=== PATIENT | male | born 1950 | race Caucasian/White ===

== ENCOUNTER 2018-09-27 20:40 | Emergency (ER) | payer MEDICARE, OTHER ==
[2018-09-27] MEDS ORDERED: KETOROLAC TROMETHAMINE 60 MG/2 ML SDV IM ONE (21:25)
[2018-09-27] MEDS ORDERED: HYDROMORPHONE HCL INJ/PF 2 MG/ML AMPULE IM ONE (21:25)
--- NOTE | 2018-09-27 22:08 | RADIOLOGY REPORT (SQ) ---
2 VIEWS OF THE LEFT SHOULDER HISTORY: Postoperative pain. COMPARISON: None. FINDINGS: Bone mineralization is normal. No acute fracture is seen. Moderate degenerative changes of the acromioclavicular and glenohumeral joints. Small amount of air with soft tissue swelling surrounds the shoulder joint which may be postoperative. IMPRESSION: No acute fracture. Moderate degenerative changes.
[2018-09-27] MEDS ORDERED: ACETAMINOPHEN 325 MG TABLET PO ONE (22:31)
[2018-09-27] MEDS ORDERED: HYDROMORPHONE HCL INJ/PF 2 MG/ML AMPULE IV PRN (22:31)
--- NOTE | 2018-09-27 22:33 | ER Document Report ---
ED General - General Chief Complaint: Post Surgical Pain Stated Complaint: LEFT SHOULDER PAIN/POST OP Time Seen by Provider: 09/27/18 21:23 Notes: Patient is a 68-year old male who presents with severe left shoulder pain. The patient states that he had an arthroscopic of the left shoulder 2 days ago at [facility]. He states that his pain was well controlled until approximately 1800 this evening in which he gradually developed a progressively worsening throbbing, stabbing, severe pain to the left shoulder. He reports any attempt at moving the shoulder dramatically worsens the pain. He has been taking oxycodone at home that have been prescribed by the orthopedic surgeon without any relief of the pain. He states that he has not had pain similar to this since the operation. He did contact the orthopedic surgeon, was advised to increase his oxycodone dosing from 5 mg to 10 mg but that this did not provide any relief of his pain. Denies any fall or trauma to the shoulder. Denies any fever or constitutional symptoms. Denies any chest pain or shortness of breath. - Related Data Allergies/Adverse Reactions: tetracycline [Tetracycline] Allergy (Severe, Verified 09/27/18 20:43) rash Past Medical History - General Information source: Patient - Social History Smoking Status: Never Smoker Frequency of alcohol use: None Drug Abuse: None Lives with: Spouse/Significant other Family History: Reviewed & Not Pertinent Patient has suicidal ideation: No Patient has homicidal ideation: No - Past Medical History Cardiac Medical History: Reports: Hx Hypercholesterolemia Denies: Hx Coronary Artery Disease, Hx Heart Attack, Hx Hypertension Pulmonary Medical History: Reports: Hx Asthma, Hx Bronchitis Denies: Hx COPD, Hx Pneumonia, Hx Tuberculosis Neurological Medical History: Denies: Hx Cerebrovascular Accident, Hx Seizures Renal/ Medical History: Reports: Hx Benign Prostatic Hyperplasia. Denies: Hx Peritoneal Dialysis GI Medical History: Reports: Hx Gastroesophageal Reflux Disease, Hx Hiatal Hernia Musculoskeletal Medical History: Reports Hx Arthritis, Reports Hx Musculoskeletal Trauma Past Surgical History: Reports: Hx Abdominal Surgery - hernia surgery, Hx Orthopedic Surgery - shoulder replaced, Hx Thyroid Surgery, Hx Tonsillectomy, Hx Umbilical Hernia. Denies: Hx Pacemaker - Immunizations Immunizations up to date: No Hx Diphtheria, Pertussis, Tetanus Vaccination: No - 2003 Hx Pneumococcal Vaccination: 08/27/09 Review of Systems - Review of Systems Notes: Constitutional: Negative for fever. HENT: Negative for sore throat. Eyes: Negative for visual changes. Cardiovascular: Negative for chest pain. Respiratory: Negative for shortness of breath. Gastrointestinal: Negative for abdominal pain, vomiting or diarrhea. Genitourinary: Negative for dysuria. Musculoskeletal: Positive for right shoulder pain Skin: Negative for rash. Neurological: Negative for headaches, weakness or numbness. 10 point ROS negative except as marked above and in HPI. Physical Exam - Vital signs Vitals: Temp Pulse Resp BP Pulse Ox 98 F 72 20 152/107 H 95 09/27/18 20:43 09/27/18 20:43 09/27/18 20:43 09/27/18 20:43 09/27/18 20:43 Interpretation: Hypertensive Notes: PHYSICAL EXAMINATION: GENERAL: Appears uncomfortable and in pain HEAD: Atraumatic, normocephalic. EYES: Pupils equal round and reactive to light, extraocular movements intact, sclera anicteric, conjunctiva are normal. ENT: nares patent, oropharynx clear without exudates. Moderately dry mucous membranes. NECK: Normal range of motion, supple without lymphadenopathy LUNGS: Breath sounds clear to auscultation bilaterally and equal. No wheezes rales or rhonchi. HEART: Regular rate and rhythm without murmurs EXTREMITIES: Left arm immobilized in a sling. Range of motion testing deferred due to pain NEUROLOGICAL: RMU motor and sensory distribution intact bilaterally PSYCH: Normal mood, normal affect. SKIN: Warm, Dry, normal turgor, there is a small incisional scar over the left shoulder with a single stitch in place without any evidence of surrounding erythema or discharge Course - Re-evaluation Re-evalutation: 09/27/18 22:31 Patient presents with severe pain to the left shoulder after having an exploratory scope of the shoulder 2 days ago. Patient does appear to be in significant pain at the time my assessment is tight receiving hydromorphone and Toradol IM. X-rays without any acute fractures. He did not have any hardware placed, only had the shoulder scoped. He has been taking oxycodone at home without relief. Surgical incision itself is well in appearance, no evidence of erythema or discharge. No appreciable swelling or erythema to the shoulder. Will continue to work on getting the patient's pain under better control and then plan for discharge home. 09/27/18 23:42 Patient's pain is much improved at this point. Now resting comfortably. Comfortable with discharge home. At this time will discharge with return precautions and follow-up recommendations. Verbal discharge instructions given a the bedside and opportunity for questions given. Medication warnings reviewed. Patient is in agreement with this plan and has verbalized understanding of return precautions and the need for orthopedic follow-up within the next 24 hours due to his increased pain. - Vital Signs Vital signs: Temp Pulse Resp BP Pulse Ox 98.5 F 70 16 125/68 95 09/27/18 23:52 09/27/18 23:52 09/27/18 23:52 09/27/18 23:52 09/27/18 23:52 - Diagnostic Test Radiology reviewed: Image reviewed, Reports reviewed Radiology results interpreted by me: 09/27/18 22:32 Left shoulder x-ray: No acute fracture or dislocation Discharge - Discharge Clinical Impression: Postoperative pain Left shoulder pain Qualifiers: Chronicity: acute Qualified Code(s): M25.512 - Pain in left shoulder Condition: Good Disposition: HOME, SELF-CARE Additional Instructions: Take 1000 mg of Tylenol every 6 hours. Use the oxycodone that you have available 10 mg every 4 hours as needed for pain uncontrolled by Tylenol. Your x-rays otherwise unremarkable today. Please follow-up with orthopedic surgeon regarding your ongoing pain in the postoperative setting. Referrals: XENA ELIZABETH MD [COMMUNITY BASED STAFF] - Follow up as needed
[2018-09-27 23:59] VITALS: BP 125/68
== END 2018-09-27 23:58 | disposition home or self-care (01) ==
LOC: ER 20:40
DX: G89.18 Other acute postprocedural pain (principal); M25.512 Pain in left shoulder; E78.00 Pure hypercholesterolemia, unspecified
CPT/HCPCS: 99284; 73030; A9270; J1885; J1170

== ENCOUNTER 2018-10-02 18:09 | Inpatient (IN) | payer MEDICARE, OTHER ==
--- NOTE | 2018-10-02 18:36 | ER Document Report ---
ED Medical Screen (RME) - General Chief Complaint: Foot Pain Stated Complaint: FOOT PAIN/SHORT OF BREATH Time Seen by Provider: 10/02/18 18:30 Notes: 68 years old male presents today with left leg swelling particularly left ankle with redness as well as shortness of breath for the last 2 days. He had a recent travel to [place] where he rolled back and forth. Denies any precordial chest pain. Denies any nausea vomiting fever chills or other constitutional symptoms. Left lower extremity shows erythema around the ankle and foot and 4+ pitting edema. TRAVEL OUTSIDE OF THE [place] IN LAST 30 DAYS: No - Related Data Allergies/Adverse Reactions: tetracycline [Tetracycline] Allergy (Severe, Verified 10/02/18 18:10) rash Past Medical History - Social History Chew tobacco use (# tins/day): No Frequency of alcohol use: Occasional Drug Abuse: None - Past Medical History Cardiac Medical History: Reports: Hx Hypercholesterolemia Denies: Hx Coronary Artery Disease, Hx Heart Attack, Hx Hypertension Pulmonary Medical History: Reports: Hx Asthma, Hx Bronchitis Denies: Hx COPD, Hx Pneumonia, Hx Tuberculosis Neurological Medical History: Denies: Hx Cerebrovascular Accident, Hx Seizures Renal/ Medical History: Reports: Hx Benign Prostatic Hyperplasia. Denies: Hx Peritoneal Dialysis GI Medical History: Reports: Hx Gastroesophageal Reflux Disease, Hx Hiatal Hernia Musculoskeltal Medical History: Reports Hx Arthritis, Reports Hx Musculoskeletal Trauma Past Surgical History: Reports: Hx Abdominal Surgery - hernia surgery, Hx Orthopedic Surgery - shoulder replaced, Hx Thyroid Surgery, Hx Tonsillectomy, Hx Umbilical Hernia. Denies: Hx Pacemaker - Immunizations Immunizations up to date: No Hx Diphtheria, Pertussis, Tetanus Vaccination: No - 2003 Physical Exam - Vital signs Vitals: Temp Pulse Resp BP Pulse Ox 98.7 F 74 18 165/89 H 96 10/02/18 18:13 10/02/18 18:13 10/02/18 18:13 10/02/18 18:13 10/02/18 18:13 Course - Vital Signs Vital signs: Temp Pulse Resp BP Pulse Ox 98.7 F 74 18 165/89 H 96 10/02/18 18:13 10/02/18 18:13 10/02/18 18:13 10/02/18 18:13 10/02/18 18:13 Doctor's Discharge - Discharge Referrals: DEE MANDEL MD [Primary Care Provider] - Follow up as needed
[2018-10-02 19:06] LABS: ABSOLUTE BASOPHILS # (AUTO) 0.1 10^3/uL (0.0-0.2); ABSOLUTE EOSINOPHILS # (AUTO) 0.2 10^3/uL (0.0-0.6); ABSOLUTE LYMPHOCYTES (AUTO) 2.1 10^3/uL (0.5-4.7); ABSOLUTE MONOCYTES (AUTO) 0.6 10^3/uL (0.1-1.4); ABSOLUTE NEUT (AUTO) 6.7 10^3/uL (1.7-8.2); BASOPHILS % (AUTO) 0.8 % (0-2); EOSINOPHILS % (AUTO) 1.9 % (0-6); HEMATOCRIT 42.3 % (37.9-51.0); HEMOGLOBIN 14.7 g/dL (13.5-17.0); LYMPHOCYTES % (AUTO) 21.5 % (13-45); MEAN CORPUSCULAR HEMOGLOBIN 30.7 pg (27.0-33.4); MEAN CORPUSCULAR HGB CONC 34.7 g/dL (32.0-36.0); MEAN CORPUSCULAR VOLUME 88 fl (80-97); MONOCYTES % (AUTO) 6.1 % (3-13); PLATELET COUNT 249 10^3/uL (150-450); RED BLOOD COUNT 4.78 10^6/uL (4.35-5.55); SEGMENTED NEUTROPHILS % (AUTO) 69.7 % (42-78); TOTAL CELLS COUNTED % (AUTO) 100 %; WHITE BLOOD COUNT 9.5 10^3/uL (4.0-10.5)
[2018-10-02 19:26] LABS: ALANINE AMINOTRANSFERASE 22 U/L (21-72); ALBUMIN 4.4 g/dL (3.5-5.0); ALKALINE PHOSPHATASE 75 U/L (38-126); ANION GAP 13 (5-19); ASPARTATE AMINO TRANSFERASE 21 U/L (17-59); BILIRUBIN,DIRECT 0.3 mg/dL (0.0-0.4); BILIRUBIN,TOTAL 0.9 mg/dL (0.2-1.3); BLOOD UREA NITROGEN 15 mg/dL (7-20); CALCIUM 9.9 mg/dL (8.4-10.2); CARBON DIOXIDE 30 mmol/L (22-30); CHLORIDE 99 mmol/L (98-107); GLUCOSE 101 mg/dL (75-110); POTASSIUM 4.4 mmol/L (3.6-5.0); SODIUM 141.7 mmol/L (137-145); TOTAL PROTEIN 7.1 g/dL (6.3-8.2)
[2018-10-02 19:34] LABS: APPEARANCE,URINE CLEAR; BILIRUBIN,URINE NEGATIVE (NEGATIVE); COLOR,URINE YELLOW; GLUCOSE, URINE NEGATIVE (NEGATIVE); KETONES,URINE NEGATIVE (NEGATIVE); LEUKOCYTE ESTERASE,URINE NEGATIVE (NEGATIVE); NITRITE,URINE NEGATIVE (NEGATIVE); PROTEIN,URINE NEGATIVE (NEGATIVE); URINE SPECIFIC GRAVITY 1.017; UROBILINOGEN,URINE NEGATIVE mg/dL (<2.0)
--- NOTE | 2018-10-02 20:00 | ER Document Report ---
ED General - General Chief Complaint: Foot Pain Stated Complaint: FOOT PAIN/SHORT OF BREATH Time Seen by Provider: 10/02/18 18:30 Notes: Patient is a 68-year-old male with a past medical history of hypertension, recent left shoulder exploratory scope who presents with 24 hours of progressively worsening swelling of the left lower extremity as well as shortness of breath and pleuritic chest discomfort. Patient states that the symptoms started gradually and have gotten progressively worse over that period of time. Nothing improves or worsens his symptoms. He does describe the chest discomfort as a heaviness, mild discomfort. He describes the pain in his left leg as being a throbbing, aching, constant pain. He denies any history of similar symptoms in the past. He has not seen his general doctor regarding today's concerns. No hemoptysis, syncope, vomiting, or diaphoresis. He does not take any form of anticoagulation. TRAVEL OUTSIDE OF THE [place] IN LAST 30 DAYS: No - Related Data Allergies/Adverse Reactions: Sulfa (Sulfonamide Antibiotics) Allergy (Severe, Verified 10/03/18 01:33) Generalized rash tetracycline [Tetracycline] Allergy (Severe, Verified 10/02/18 18:10) rash Past Medical History - General Information source: Patient - Social History Smoking Status: Never Smoker Chew tobacco use (# tins/day): No Frequency of alcohol use: Occasional Drug Abuse: None Lives with: Spouse/Significant other Family History: Reviewed & Not Pertinent Patient has suicidal ideation: No Patient has homicidal ideation: No - Past Medical History Cardiac Medical History: Reports: Hx Hypercholesterolemia Denies: Hx Coronary Artery Disease, Hx Heart Attack, Hx Hypertension Pulmonary Medical History: Reports: Hx Asthma, Hx Bronchitis Denies: Hx COPD, Hx Pneumonia, Hx Tuberculosis Neurological Medical History: Denies: Hx Cerebrovascular Accident, Hx Seizures Renal/ Medical History: Reports: Hx Benign Prostatic Hyperplasia. Denies: Hx Peritoneal Dialysis GI Medical History: Reports: Hx Gastroesophageal Reflux Disease, Hx Hiatal Hernia Musculoskeletal Medical History: Reports Hx Arthritis, Reports Hx Musculoskeletal Trauma Past Surgical History: Reports: Hx Abdominal Surgery - hernia surgery, Hx Orthopedic Surgery - shoulder replaced, Hx Thyroid Surgery, Hx Tonsillectomy, Hx Umbilical Hernia. Denies: Hx Pacemaker - Immunizations Immunizations up to date: No Hx Diphtheria, Pertussis, Tetanus Vaccination: No - 2003 Hx Pneumococcal Vaccination: 08/27/09 Review of Systems - Review of Systems Notes: Constitutional: Negative for fever. HENT: Negative for sore throat. Eyes: Negative for visual changes. Cardiovascular: Positive for chest pain. Respiratory: Positive for shortness of breath. Gastrointestinal: Negative for abdominal pain, vomiting or diarrhea. Genitourinary: Negative for dysuria. Musculoskeletal: Positive for left leg pain Skin: Negative for rash. Neurological: Negative for headaches, weakness or numbness. 10 point ROS negative except as marked above and in HPI. Physical Exam - Vital signs Vitals: Temp Pulse Resp BP Pulse Ox 98.7 F 74 18 165/89 H 96 10/02/18 18:13 10/02/18 18:13 10/02/18 18:13 10/02/18 18:13 10/02/18 18:13 Interpretation: Normal Notes: PHYSICAL EXAMINATION: GENERAL: Well-appearing, well-nourished and in no acute distress. HEAD: Atraumatic, normocephalic. EYES: Pupils equal round and reactive to light, extraocular movements intact, sclera anicteric, conjunctiva are normal. ENT: nares patent, oropharynx clear without exudates. Moist mucous membranes. NECK: Normal range of motion, supple without lymphadenopathy LUNGS: Breath sounds clear to auscultation bilaterally and equal. No wheezes rales or rhonchi. HEART: Regular rate and rhythm without murmurs ABDOMEN: Soft, nontender, normoactive bowel sounds. No guarding, no rebound. No masses appreciated. EXTREMITIES: Normal range of motion, trace edema in the right lower extremity, 1 + pitting edema in the left lower extremity. NEUROLOGICAL: No focal neurological deficits. Moves all extremities spontaneously and on command. PSYCH: Normal mood, normal affect. SKIN: Warm, Dry, normal turgor, no rashes or lesions noted. Course - Re-evaluation Re-evalutation: 10/02/18 19:59 Patient presents with bilateral lower extremity swelling, worse on the left in the setting of a recent surgery and increased immobilization. Patient is also complaining of pleuritic chest discomfort and dyspnea worrisome for left lower cavity DVT with associated pulmonary embolus. D-dimer is noted to be elevated. Labs otherwise unremarkable. Patient will go for a left lower extremity venous Doppler as well as CT of the chest. 10/02/18 22:10 Patient has multiple pulmonary emboli on the right. Likely coming from a DVT in the left lower extremity. Patient remains hemodynamically within normal limits, well in appearance. Has been started on Lovenox. I discussed with Dr. Platt who has accepted for admission. - Vital Signs Vital signs: Temp Pulse Resp BP Pulse Ox 98.6 F 69 20 146/75 H 96 10/03/18 00:50 10/03/18 02:00 10/03/18 00:50 10/03/18 00:50 10/03/18 00:50 - Laboratory Result Diagrams: 10/02/18 18:56 10/02/18 18:56 Laboratory results interpreted by me: 10/02/18 18:56 D-Dimer 3.70 H - Diagnostic Test Radiology reviewed: Image reviewed, Reports reviewed - EKG Interpretation by Me Additional EKG results interpreted by me: 10/03/18 03:03 Sinus rhythm. Rate 68. No ST elevations or depressions. QTC is 426. Discharge - Discharge Clinical Impression: Shortness of breath, Left leg swelling Pulmonary embolus Qualifiers: Pulmonary embolism type: other Chronicity: acute Acute cor pulmonale presence: without acute cor pulmonale Qualified Code(s): I26.99 - Other pulmonary embolism without acute cor pulmonale Condition: Fair Disposition: ADMITTED OBSERVATION Admitting Provider: Hospitalist Unit Admitted: Telemetry
--- NOTE | 2018-10-02 21:48 | RADIOLOGY REPORT (SQ) ---
EXAM DESCRIPTION: CT CHEST ANGIOGRAPHY WITHOUT THEN WITH IV CONTRAST COMPLETED DATE/TME: 10/02/2018 18:35 CLINICAL HISTORY: 68 years, Male, Shortness of breath rule out PE COMPARISON: PROCEDURE: CLINICAL HISTORY: 68 years Male Shortness of breath rule out PE COMPARISON: None. TECHNIQUE: Contiguous axial images were obtained through the chest during the infusion of IV contrast. Reformatted images obtained. MIP reformatted images obtained. This exam was performed according to our department optimization program which includes automated exposure control, adjustment of the mA and/or kv according to patient size and/or use of iterative reconstruction technique. FINDINGS: There are intraluminal thrombi within branches of the pulmonary arteries supplying the majority of the right lung. No saddle embolus is seen. Thrombi are primarily in second and third order branches. There is consolidation and atelectasis at the left lung base.Right thyroid lobe is enlarged relative to the left but no definite focal lesion is seen. Sonography may be helpful if desired. Atelectasis involves each lung. There is no definite evidence of heart strain. . No pneumothorax is seen. Heart size is normal. No pleural effusions. No lymphadenopathy. No PE is seen in the left pulmonary artery branches. No evidence of aortic aneurysm. No other significant abnormality. IMPRESSION: Extensive right pulmonary emboli. I am contacting the ordering clinician now. TECHNIQUE: Images stored on PACS. All CT scanners at this facility use dose modulation, iterative reconstruction, and/or weight based dosing when appropriate to reduce radiation dose to as low as reasonably achievable (ALARA). [facility]: Dose Right [facility]: CareDose [facility]: Dose Right [facility]: Teradose 4D [facility]: [employer] LIMITATIONS: None. FINDINGS: IMPRESSION: TECHNICAL DOCUMENTATION: Quality ID # [id number]: Final reports with documentation of one or more dose reduction techniques (e.g., Automated exposure control, adjustment of the mA and/or kV according to patient size, use of iterative reconstruction technique) 2010 [employer]- All Rights Reserved
[2018-10-02] MEDS ORDERED: ENOXAPARIN SODIUM INJ 120 MG/0.8 ML DISP.SYRIN SUBCUT SCH (22:00)
[2018-10-02] MEDS ORDERED: IPRATROPIUM/ALBUTEROL 0.5-2.5 MG/3 ML AMPUL NEB PRN (23:22)
[2018-10-02] MEDS ORDERED: PROMETHAZINE HCL INJ 25 MG/1 ML VIAL IV PRN (23:22)
[2018-10-02] MEDS ORDERED: ACETAMINOPHEN 325 MG TABLET PO PRN (23:22)
[2018-10-02] MEDS ORDERED: TEMAZEPAM 7.5 MG CAPSULE PO PRN (23:22)
[2018-10-02] MEDS ORDERED: PROMETHAZINE HCL 25 MG TABLET PO PRN (23:22)
[2018-10-02] MEDS ORDERED: MAG HYDROX/AL HYDROX/SIMETH SUSP 30 ML UDCUP PO PRN (23:22)
[2018-10-03 00:57] LABS: APPEARANCE,URINE CLEAR; BILIRUBIN,URINE NEGATIVE (NEGATIVE); COLOR,URINE STRAW; GLUCOSE, URINE NEGATIVE (NEGATIVE); KETONES,URINE NEGATIVE (NEGATIVE); LEUKOCYTE ESTERASE,URINE NEGATIVE (NEGATIVE); NITRITE,URINE NEGATIVE (NEGATIVE); PROTEIN,URINE NEGATIVE (NEGATIVE); URINE SPECIFIC GRAVITY 1.039; UROBILINOGEN,URINE NEGATIVE mg/dL (<2.0)
--- NOTE | 2018-10-03 02:17 | PDOC H&P ---
History of Present Illness Admission Date/PCP: 10/02/18 23:22 DEE MANDEL MD Patient complains of: Left foot swelling History of Present Illness: PAULINE BROWN is a 68 year old male who comes to the emergency department with left foot pain and swelling. On September 26 patient had a left shoulder arthroscopic surgery and since then she has been laying on the couch, able to walk to the bathroom [id number] but for the last 2 days he is complaining of mild shortness of breath with a persistent dry cough for the last 3 days, phlegm, wheezing, pleuritic chest pain or chest pain, fever, chills, nausea, vomiting. Today he was at the [facility] who sent him to the emergency department as were concerns of DVT. Patient also went to [place] on September 17 by car and this is a [address] and came back on September 22 In the emergency department d-dimer noted to be elevated, left lower extremity ultrasound came back negative, CT a came back positive for intraluminal thrombi within branches of most of the right pulmonary arteries with no saddle emboli. Was a started on 1 mg/kg of Lovenox. Denies any history of blood clots. Past Medical History Past Medical History: Exposure to agent orange Cardiac Medical History: Reports: Hyperlipidema Pulmonary Medical History: Reports: Asthma, Bronchitis, Sleep Apnea - On CPAP EENT Medical History: Reports: Other - Moderate decreased hearing Neurological Medical History: Reports: Other - Restless leg syndrome Malignancy Medical History: Reports: Other GI Medical History: Reports: Gastroesophageal Reflux Disease, Hiatal Hernia Musculoskeltal Medical History: Reports: Arthritis Past Surgical History Past Surgical History: Reports: Herniorrhaphy, Orthopedic Surgery - shoulder replaced, Thyroidectomy, Tonsillectomy, Other - Half thyroidectomy Colonoscopy Social History Information Source: Patient, Relative Smoking Status: Never Smoker Frequency of Alcohol Use: Occasional Hx Recreational Drug Use: No Drugs: None Hx Prescription Drug Abuse: No - Advance Directive Resuscitation Status: Full Code Family History Family History: Reviewed & Not Pertinent Family History: Mother at 93 years old with history of osteoarthritis, father at 76 years old with history of prostate cancer, 2 uncles with history of SD Parental Family History Reviewed: Yes - As above Children Family History Reviewed: NA Sibling(s) Family History Reviewed.: NA Medication/Allergy Home Medications: Acetaminophen [Tylenol 325 mg Tablet] 325 mg PO Q6HP PRN 08/29/12 Acyclovir [Zovirax Susp 200 mg/5 ml 60 ml] 200 mg PO DAILY 07/16/12 Albuterol Sulfate [Ventolin HFA 60 puff/8 gm (ER Dispense)] 1 puff IH Q4H PRN Aspirin [Aspirin 81 mg Chewable Tablet] 81 mg PO DAILY 07/16/12 Esomeprazole Mag Trihydrate [Nexium] 40 mg PO DAILY 07/16/12 Fluticasone/Salmeterol [Advair 250-50 Diskus 14 Dose (Hosp Use)] 1 inh IH DAILY 07/16/12 Loratadine [Alavert] 10 mg PO DAILY 07/16/12 Multivitamin [Multivitamins] 1 each PO DAILY 07/16/12 Pravastatin Sodium [Pravachol] 20 mg PO DAILY 07/16/12 Tadalafil [Cialis] 2.5 mg PO DAILY 07/16/12 Alfuzosin HCl [Uroxatral SR 10 mg Tablet] 10 mg PO DAILY 07/22/12 Docusate Sodium [Colace 100 mg Capsule] 100 mg PO BID 07/22/12 Oxycodone HCl/Acetaminophen [Percocet 10-325 mg Tablet] 1 tab PO Q4HP PRN Oxycodone HCl/Acetaminophen [Percocet 5-325 mg Tablet] 1 cap PO Q4 PRN 07/26/12 Ondansetron [Zofran Odt 4 mg Tablet] 1 tab PO Q6H #15 tab.rapdis 02/21/13 Allergies/Adverse Reactions: Sulfa (Sulfonamide Antibiotics) Allergy (Severe, Verified 10/03/18 01:33) Generalized rash tetracycline [Tetracycline] Allergy (Severe, Verified 10/02/18 18:10) rash Review of Systems Review of Systems: As outlined in the HPI, others negative Physical Exam Vital Signs: Temp Pulse Resp BP Pulse Ox 98.6 F 72 20 146/75 H 96 10/03/18 00:50 10/03/18 00:50 10/03/18 00:50 10/03/18 00:50 10/03/18 00:50 Intake & Output 10/01/18 10/02/18 10/03/18 06:59 06:59 06:59 Weight 111.6 kg Additional comments: General appearance: Well-developed, well-nourished, alert and cooperative, and appears to be in no acute distress Head: Normocephalic Eyes: PEERL, EOMI, vision is grossly intact. Ears: External auditory canal and tympanic membranes clear, hearing grossly intact. Nose: No nasal discharge. Throat: Oral cavity and pharynx normal. No inflammation, swelling, exudate or lesions. Neck: Neck supple, nontender without lymphadenopathy, masses or thyromegaly. Cardiac: Normal S1 and S2. No S3, S4 or murmurs. Rhythm is regular. There is no peripheral edema, cyanosis or pallor. Extremities are warm and well perfused. Capillary refill is less than 2 seconds. No carotid bruits. Lungs: Clear to auscultation and percussion without rales, rhonchi, wheezing or diminished breath sounds. Not using accessory muscles. Abdomen: Positive bowel sounds. Soft. Nondistended, nontender. No guarding or rebound. No masses. No hepatosplenomegaly Extremities: No significant deformity or joint abnormality. No edema. Peripheral pulses intact. Left shoulder with ROM limitations secondary to recent surgery and pain Neurological: Cranial nerves II through XII grossly intact. Strength and sensation symmetric and intact throughout. Reflexes 2+ throughout. Skin: Skin normal color, texture and turgor with no lesions or eruptions, warm and dry. Psychiatric: The mental examination revealed the patient was oriented to person , place, and time. The patient was able to demonstrate good judgment on recent , without hallucinations, abnormal affect or abnormal behaviors. Results Laboratory Results: 10/02/18 23:50 Urine Color STRAW Urine Appearance CLEAR Urine pH 7.0 Ur Specific [place] 1.039 Urine Protein NEGATIVE Urine Glucose (UA) NEGATIVE Urine Ketones NEGATIVE Urine Blood NEGATIVE Urine Nitrite NEGATIVE Ur Leukocyte Esterase NEGATIVE Urine WBC (Auto) 0 10/02/18 10/02/18 10/02/18 18:55 18:56 18:56 WBC 9.5 RBC 4.78 Hgb 14.7 Hct 42.3 MCV 88 MCH 30.7 MCHC 34.7 RDW 14.0 Plt Count 249 Seg Neutrophils % 69.7 Lymphocytes % 21.5 Monocytes % 6.1 Eosinophils % 1.9 Basophils % 0.8 Absolute Neutrophils 6.7 Absolute Lymphocytes 2.1 Absolute Monocytes 0.6 Absolute Eosinophils 0.2 Absolute Basophils 0.1 D-Dimer Sodium 141.7 Potassium 4.4 Chloride 99 Carbon Dioxide 30 Anion Gap 13 BUN 15 Creatinine 1.15 Est GFR ( Amer) > 60 Est GFR (Non-Af Amer) > 60 Glucose 101 Calcium 9.9 Total Bilirubin 0.9 Direct Bilirubin 0.3 AST 21 ALT 22 Alkaline Phosphatase 75 Troponin I Total Protein 7.1 Albumin 4.4 Urine Color YELLOW Urine Appearance CLEAR Urine pH 7.0 Ur Specific [place] 1.017 Urine Protein NEGATIVE Urine Glucose (UA) NEGATIVE Urine Ketones NEGATIVE Urine Blood NEGATIVE Urine Nitrite NEGATIVE Urine Bilirubin NEGATIVE Urine Urobilinogen NEGATIVE Ur Leukocyte Esterase NEGATIVE Urine WBC (Auto) 0 Urine Mucus (Auto) RARE Urine Ascorbic Acid NEGATIVE 10/02/18 10/02/18 18:56 18:56 WBC RBC Hgb Hct MCV MCH MCHC RDW Plt Count Seg Neutrophils % Lymphocytes % Monocytes % Eosinophils % Basophils % Absolute Neutrophils Absolute Lymphocytes Absolute Monocytes Absolute Eosinophils Absolute Basophils D-Dimer 3.70 H Sodium Potassium Chloride Carbon Dioxide Anion Gap BUN Creatinine Est GFR ( Amer) Est GFR (Non-Af Amer) Glucose Calcium Total Bilirubin Direct Bilirubin AST ALT Alkaline Phosphatase Troponin I < 0.012 Total Protein Albumin Urine Color Urine Appearance Urine pH Ur Specific [place] Urine Protein Urine Glucose (UA) Urine Ketones Urine Blood Urine Nitrite Urine Bilirubin Urine Urobilinogen Ur Leukocyte Esterase Urine WBC (Auto) Urine Mucus (Auto) Urine Ascorbic Acid Impressions: Chest/Abdomen CTA 10/02/18 18:35 IMPRESSION: Extensive right pulmonary emboli. I am contacting the ordering clinician now. TECHNIQUE: Images stored on PACS. All CT scanners at this facility use dose modulation, iterative reconstruction, and/or weight based dosing when appropriate to reduce radiation dose to as low as reasonably achievable (ALARA). [facility]: Dose Right [facility]: CareDose [facility]: Dose Right [facility]: Teradose 4D [facility]: [employer] LIMITATIONS: None. FINDINGS: IMPRESSION: TECHNICAL DOCUMENTATION: Quality ID # [id number]: Final reports with documentation of one or more dose reduction techniques (e.g., Automated exposure control, adjustment of the mA and/or kV according to patient size, use of iterative reconstruction technique) 2010 [employer]- All Rights Reserved Assessment & Plan - Diagnosis (1) Pulmonary embolus Qualifiers: Pulmonary embolism type: other Chronicity: acute Acute cor pulmonale presence: without acute cor pulmonale Qualified Code(s): I26.99 - Other pulmonary embolism without acute cor pulmonale Is this a current diagnosis for this admission?: Yes Plan: Patient has risk factor as his recent prolonged car travel, recent surgery with post operative sedentarism. Will continue with Lovenox 1 mg/kg every 12 hours , first dose given in the emergency department, will also monitor for possible hemoptysis. Continue telemetry monitoring, oxygen protocol via nasal cannula as needed, he will be on CPAP overnight. Transition to p.o. anticoagulation according with his insurance coverage. Currently patient is very comfortable, not in nasal cannula, good oxygen saturation at 97% on room air. (2) Left leg swelling Is this a current diagnosis for this admission?: Yes Plan: Unclear etiology, bilateral lower extremity ultrasound negative for DVT, it can be secondary to his large pulmonary embolism with some cardiac strain producing lower extremities edema. Will recommend leg elevation. (3) Postoperative pain Is this a current diagnosis for this admission?: Yes Plan: Patient has had recent left shoulder arthroplasty, still with limitations upon movement, he tells me he needs to have rehabilitation but will start next Saturday. As needed pain medication. (4) Obstructive sleep apnea Is this a current diagnosis for this admission?: Yes Plan: Patient is on CPAP at home, will resume this, will call to let us know what is the setting (5) DVT prophylaxis Is this a current diagnosis for this admission?: Yes Plan: Full dose of Lovenox - Time Time Spent: 50 to 70 Minutes - Inpatient Certification Based on my medical assessment, after consideration of the patient's comorbidities, presenting symptoms, or acuity I expect that the services needed warrant INPATIENT care.: Yes I certify that my determination is in accordance with my understanding of Medicare's requirements for reasonable and necessary INPATIENT services [42 CFR 412.3e].: Yes Medical Necessity: Risk of Complication if Not Cared For in Hospital - Acute respiratory failure, hemoptysis
[2018-10-03] MEDS ORDERED: ALBUTEROL SULFATE HFA (90 MCG/PUFF) 8 GM MDI (1 MDI/ER DISP) IH PRN (03:34)
[2018-10-03] MEDS ORDERED: OXYCODONE-ACETAMINOPHEN 5-325 MG TABLET PO PRN (03:34)
[2018-10-03] MEDS: LANSOPRAZOLE 30 MG TAB.RAP.DR PO SCH (05:19)
[2018-10-03] MEDS: ONDANSETRON 4 MG TAB.RAPDIS PO SCH ×3 (05:22→18:08)
[2018-10-03 05:43] LABS: HEMATOCRIT 38.7 % (37.9-51.0); HEMOGLOBIN 13.7 g/dL (13.5-17.0); MEAN CORPUSCULAR HEMOGLOBIN 30.9 pg (27.0-33.4); MEAN CORPUSCULAR HGB CONC 35.5 g/dL (32.0-36.0); MEAN CORPUSCULAR VOLUME 87 fl (80-97); PLATELET COUNT 224 10^3/uL (150-450); RED BLOOD COUNT 4.45 10^6/uL (4.35-5.55); WHITE BLOOD COUNT 7.5 10^3/uL (4.0-10.5)
[2018-10-03 06:07] LABS: ANION GAP 14 (5-19); BLOOD UREA NITROGEN 12 mg/dL (7-20); CALCIUM 9.6 mg/dL (8.4-10.2); CARBON DIOXIDE 24 mmol/L (22-30); CHLORIDE 103 mmol/L (98-107); GLUCOSE 110 mg/dL (75-110); PHOSPHORUS 4.6 mg/dL (2.5-4.5); POTASSIUM 4.2 mmol/L (3.6-5.0); SODIUM 140.7 mmol/L (137-145)
[2018-10-03 07:00] LABS: ARTERIAL BLOOD BASE EXCESS 2.6 mmol/L; ARTERIAL BLOOD H2CO3 1.16 mmol/L (1.05-1.35); ARTERIAL BLOOD HCO3 26.5 mmol/L (20-24); ARTERIAL BLOOD O2 SATURATION 95.8 % (94-98); ARTERIAL BLOOD PCO2 38.5 mmHg (35-45); ARTERIAL BLOOD PH 7.46 (7.35-7.45); ARTERIAL BLOOD PO2 75.4 mmHg (80-100); ARTERIAL BLOOD TOTAL CO2 27.6 mmol/L (23-27)
[2018-10-03 07:01] LABS: ARTERIAL BLOOD FIO2 ROOM AIR
[2018-10-03] MEDS ORDERED: ALBUTEROL SULFATE HFA (90 MCG/PUFF) 200 PUFF/8.5 GM MDI IH PRN (07:07)
--- NOTE | 2018-10-03 08:36 | RADIOLOGY REPORT (SQ) ---
EXAM DESCRIPTION: VENOUS UNILATERAL LOWER COMPLETED DATE/TIME: 10/02/2018 10:24 pm REASON FOR STUDY: left leg swelling COMPARISON: CT angio chest 10/02/2018 TECHNIQUE: Dynamic and static mehta scale and color images acquired of the left leg venous system. Se lected spectral images acquired with additional compression and augmentation maneuvers. The contralat eral common femoral vein and saphenofemoral junction were also imaged. Images stored on PACS. LIMITATIONS: None. FINDINGS: LEFT COMMON FEMORAL: Normal phasicity, compression and augmentation. No visualized echogenic material on g ray scale. No defects on color images. FEMORAL: Normal compression and augmentation. No visualized echogenic material on mehta scale. No defe cts on color images. POPLITEAL: Normal compression, augmentation. No visualized echogenic material on mehta scale. No defec ts on color images. CALF VESSELS: Normal compression, augmentation. No visualized echogenic material on mehta scale. No de fects on color images. GSV and SSV: Normal compression, augmentation. No visualized echogenic material on mehta scale. No def ects on color images. ANY DEEP VENOUS INSUFFICIENCY: Not evaluated. ANY EVIDENCE OF POPLITEAL CYST: No. OTHER: No other significant finding. RIGHT COMMON FEMORAL VEIN AND SAPHENOFEMORAL JUNCTION: Normal phasicity, compression and augmentation. No visualized echogenic material on mehta scale. No de fects on color images. IMPRESSION: NO EVIDENCE OF DVT OR SVT IN THE LEFT LEG. TECHNICAL DOCUMENTATION: JOB ID: [id number] [email or web address]- All Rights Reserved Reading location - IP/workstation name: [facility]
[2018-10-03] MEDS: FLUTICASONE/SALMETEROL DISKUS 250-50 MCG/DOSE IH SCH (09:48)
[2018-10-03] MEDS: LORATADINE 10 MG TABLET PO SCH (09:49)
[2018-10-03] MEDS: DOCUSATE SODIUM 100 MG CAPSULE PO SCH ×2 (09:49→18:33)
[2018-10-03] MEDS: ACYCLOVIR 200 MG/5 ML SUSP 60 ML PO SCH (09:49)
[2018-10-03] MEDS: TAMSULOSIN HCL 0.4 MG CAP.SR.24H PO SCH (09:49)
[2018-10-03] MEDS: ASPIRIN 81 MG TABLET, CHEWABLE PO SCH (09:49)
[2018-10-03] MEDS: MULTIVITAMIN TABLET PO SCH (09:49)
[2018-10-03] MEDS ORDERED: ENOXAPARIN SODIUM INJ 120 MG/0.8 ML DISP.SYRIN SUBCUT SCH (10:00)
--- NOTE | 2018-10-03 10:47 | EKG REPORT ---
SEVERITY:- BORDERLINE ECG - SINUS RHYTHM ATRIAL PREMATURE COMPLEX BORDERLINE T WAVE ABNORMALITIES : Confirmed by: Ulisses Peña 03-Oct-2018 10:46:37
--- NOTE | 2018-10-03 16:10 | PDOC PROGRESS REPORT ---
Subjective Progress Note for:: 10/03/18 Subjective:: Patient is comfortable in bed. He says he is improving and not requiring any oxygen. His left foot plantar aspect is painful and tender and I wonder he may have plantar fasciitis. Swelling of the left lower extremity improved. Reason For Visit: PULMONARY EMBOLISM Physical Exam Vital Signs: Temp Pulse Resp BP Pulse Ox 98.2 F 82 17 128/68 H 97 10/03/18 11:33 10/03/18 14:00 10/03/18 11:33 10/03/18 11:33 10/03/18 11:33 Intake & Output 10/02/18 10/03/18 10/04/18 06:59 06:59 06:59 Intake Total 100 Output Total 350 300 Balance -350 -200 Weight 246 lb 0.574 oz General appearance: PRESENT: no acute distress, cooperative Head exam: PRESENT: atraumatic, normocephalic Eye exam: PRESENT: EOMI, PERRLA Mouth exam: PRESENT: moist, neck supple, tongue midline Neck exam: ABSENT: meningismus, tenderness, tracheostomy Respiratory exam: PRESENT: clear to auscultation ezekiel. ABSENT: accessory muscle use Cardiovascular exam: PRESENT: RRR. ABSENT: diastolic murmur, systolic murmur Pulses: PRESENT: normal radial pulses GI/Abdominal exam: PRESENT: normal bowel sounds, soft. ABSENT: ascites, mass, tenderness Rectal exam: PRESENT: deferred Extremities exam: ABSENT: pedal edema Musculoskeletal exam: PRESENT: normal inspection. ABSENT: deformity Neurological exam: PRESENT: alert, altered, awake, oriented to person, oriented to place, oriented to time, oriented to situation Psychiatric exam: PRESENT: appropriate affect. ABSENT: agitated, anxious, homicidal ideation, suicidal ideation Results Laboratory Results: 10/03/18 05:30 10/03/18 05:30 10/02/18 10/03/18 10/03/18 23:50 05:30 05:30 WBC 7.5 RBC 4.45 Hgb 13.7 Hct 38.7 MCV 87 MCH 30.9 MCHC 35.5 RDW 14.0 Plt Count 224 Carbonic Acid HCO3/H2CO3 Ratio ABG pH ABG pCO2 ABG pO2 ABG HCO3 ABG O2 Saturation ABG Base Excess FiO2 Sodium 140.7 Potassium 4.2 Chloride 103 Carbon Dioxide 24 Anion Gap 14 BUN 12 Creatinine 0.98 Est GFR ( Amer) > 60 Est GFR (Non-Af Amer) > 60 Glucose 110 Calcium 9.6 Phosphorus 4.6 H Magnesium 2.1 Urine Color STRAW Urine Appearance CLEAR Urine pH 7.0 Ur Specific [place] 1.039 Urine Protein NEGATIVE Urine Glucose (UA) NEGATIVE Urine Ketones NEGATIVE Urine Blood NEGATIVE Urine Nitrite NEGATIVE Ur Leukocyte Esterase NEGATIVE Urine WBC (Auto) 0 10/03/18 06:35 WBC RBC Hgb Hct MCV MCH MCHC RDW Plt Count Carbonic Acid 1.16 HCO3/H2CO3 Ratio 22:1 ABG pH 7.46 H ABG pCO2 38.5 ABG pO2 75.4 L ABG HCO3 26.5 H ABG O2 Saturation 95.8 ABG Base Excess 2.6 FiO2 ROOM AIR Sodium Potassium Chloride Carbon Dioxide Anion Gap BUN Creatinine Est GFR ( Amer) Est GFR (Non-Af Amer) Glucose Calcium Phosphorus Magnesium Urine Color Urine Appearance Urine pH Ur Specific [place] Urine Protein Urine Glucose (UA) Urine Ketones Urine Blood Urine Nitrite Ur Leukocyte Esterase Urine WBC (Auto) Impressions: Chest/Abdomen CTA 10/02/18 18:35 IMPRESSION: Extensive right pulmonary emboli. I am contacting the ordering clinician now. TECHNIQUE: Images stored on PACS. All CT scanners at this facility use dose modulation, iterative reconstruction, and/or weight based dosing when appropriate to reduce radiation dose to as low as reasonably achievable (ALARA). [facility]: Dose Right [facility]: CareDose [facility]: Dose Right [facility]: Teradose 4D [facility]: [employer] LIMITATIONS: None. FINDINGS: IMPRESSION: TECHNICAL DOCUMENTATION: Quality ID # [id number]: Final reports with documentation of one or more dose reduction techniques (e.g., Automated exposure control, adjustment of the mA and/or kV according to patient size, use of iterative reconstruction technique) 2010 [employer]- All Rights Reserved Venous Doppler Study 10/02/18 19:05 IMPRESSION: NO EVIDENCE OF DVT OR SVT IN THE LEFT LEG. Assessment & Plan - Diagnosis (1) Pulmonary embolus Qualifiers: Pulmonary embolism type: other Chronicity: acute Acute cor pulmonale presence: without acute cor pulmonale Qualified Code(s): I26.99 - Other pulmonary embolism without acute cor pulmonale Is this a current diagnosis for this admission?: Yes Plan: Patient is status post left shoulder surgery and had a recent trip in a car for several hours He is stable and we will switch Lovenox to Eliquis today Echocardiogram is pending He will need anticoagulation for 3-6 months Discussed with the patient and his family at the bedside (2) Left leg swelling Is this a current diagnosis for this admission?: Yes Plan: Resolved (3) Obstructive sleep apnea Is this a current diagnosis for this admission?: Yes Plan: Continue CPAP
[2018-10-03] MEDS: APIXABAN 5 MG TABLET PO SCH (18:33)
--- NOTE | 2018-10-03 19:20 | XCELERA REPORT ---
[address] [address] Transthoracic Echocardiogram Report Name: PAULINE BROWN Age: 68 yrs Gender: Male : 1950 Patient Status: Inpatient Patient Location: [address] [place] [address] Study Date: 10/03/2018 10:45 AM Height: 70 in Weight: 254 lb BSA: 2.3 m2 Procedure: A complete two-dimensional transthoracic echocardiogram was performed (2D, M-mode, spectral and color flow Doppler). The study was technically difficult with many images being suboptimal in quality. Reason For Study: Pulmonary embolism Ordering Physician: MARIAN BURRIS Performed By: Abhilash Basurto Interpretation Summary The left ventricular ejection fraction is normal. There is borderline concentric left ventricular hypertrophy. The left ventricle is grossly normal size. Doppler measurements suggest pseudonormalized left ventricular relaxation, which is associated with grade II/IV or mild to moderate diastolic dysfunction Regional wall motion abnormalities cannot be excluded due to limited visualization. The right ventricle is grossly normal size. There is normal right ventricular wall thickness. There is no mitral valve stenosis. There is a trace amount of mitral regurgitation No aortic regurgitation is present. There is no aortic valve stenosis There is a trace or physiologic amount of tricuspid regurgitation Tricuspid regurgitation jet envelope not well defined to measure RV systolic pressure accurately. The aortic root is not well visualized but is probably normal size. The inferior vena cava appeared normal and decreased > 50% with respiration (RAP 5-10 mmHg) Minimal pericardial effusion. MMode/2D Measurements & Calculations RVDd: 3.1 cm LVIDd: 4.3 cm FS: 33.4 % Ao root diam: 3.4 cm IVSd: 1.3 cm LVIDs: 2.9 cm EDV(Teich): 83.4 ml Ao root area: 9.0 cm2 LVPWd: 1.3 cm ESV(Teich): 31.4 ml LA dimension: 3.0 cm EF(Teich): 62.3 % Doppler Measurements & Calculations MV E max abraham: MV P1/2t max abraham: Ao V2 max: LV V1 max P.1 cm/sec 71.6 cm/sec 110.2 cm/sec 3.9 mmHg MV A max abraham: MV P1/2t: 88.1 msec Ao max PG: LV V1 max: 69.1 cm/sec MVA(P1/2t): 2.5 cm2 4.9 mmHg 99.1 cm/sec MV E/A: 0.88 MV dec slope: 238.1 cm/sec2 MV dec time: 0.27 sec PA V2 max: MV P1/2t-pr_phl: 82.9 cm/sec 88.1 msec PA max P.8 mmHg Left Ventricle The left ventricle is grossly normal size. There is borderline concentric left ventricular hypertrophy. The left ventricular ejection fraction is normal. Doppler measurements suggest pseudonormalized left ventricular relaxation, which is associated with grade II/IV or mild to moderate diastolic dysfunction. Regional wall motion abnormalities cannot be excluded due to limited visualization. Right Ventricle The right ventricle is grossly normal size. There is normal right ventricular wall thickness. The right ventricular systolic function is normal. Atria The right atrium is normal in size. Borderline left atrial enlargement. Interarterial septum not well visualized and not well dopplered. Cannot comment on ASD/PFO presence. Mitral Valve The mitral valve leaflets are sclerotic, but show no functional abnormalities. There is no mitral valve stenosis. There is a trace amount of mitral regurgitation. Aortic Valve The aortic valve is grossly normal. There is no aortic valve stenosis. No aortic regurgitation is present. Tricuspid Valve The tricuspid valve is not well visualized, but is grossly normal. There is no tricuspid stenosis. There is a trace or physiologic amount of tricuspid regurgitation. Tricuspid regurgitation jet envelope not well defined to measure RV systolic pressure accurately. Pulmonic Valve The pulmonic valve is not well visualized. Great Vessels The aortic root is not well visualized but is probably normal size. The inferior vena cava appeared normal and decreased > 50% with respiration (RAP 5-10 mmHg). Effusions Minimal pericardial effusion. : MARIAN BURRIS > Ulisses Peña
[2018-10-03] MEDS: FLUTICASONE NASAL SPRAY 50 MCG/SPRY 120 SPRAY/16 GM NASL SCH (19:27)
[2018-10-03] MEDS ORDERED: ATORVASTATIN CALCIUM 10 MG TABLET PO SCH (22:00)
[2018-10-04] MEDS: ONDANSETRON 4 MG TAB.RAPDIS PO SCH (05:06)
[2018-10-04] MEDS: LANSOPRAZOLE 30 MG TAB.RAP.DR PO SCH (05:07)
[2018-10-04 05:39] LABS: APPEARANCE,URINE CLEAR; BILIRUBIN,URINE NEGATIVE (NEGATIVE); COLOR,URINE YELLOW; GLUCOSE, URINE NEGATIVE (NEGATIVE); KETONES,URINE NEGATIVE (NEGATIVE); LEUKOCYTE ESTERASE,URINE NEGATIVE (NEGATIVE); NITRITE,URINE NEGATIVE (NEGATIVE); PROTEIN,URINE NEGATIVE (NEGATIVE); URINE SPECIFIC GRAVITY 1.023
--- NOTE | 2018-10-04 10:03 | PDOC DISCHARGE SUMMARY ---
General - Admit/Disc Date/PCP Admission Date/Primary Care Provider: 10/02/18 23:22 DEE MANDEL MD Discharge Date: 10/04/18 - Discharge Diagnosis (1) Pulmonary embolus Is this a current diagnosis for this admission?: Yes (2) Left leg swelling Is this a current diagnosis for this admission?: Yes (3) Obstructive sleep apnea Is this a current diagnosis for this admission?: Yes - Additional Information Resuscitation Status: Full Code Discharge Diet: As Tolerated Discharge Activity: Activity As Tolerated Prescriptions: Apixaban [Eliquis 5 mg Tablet] 5 mg PO BID 30 Days tablet Apixaban [Eliquis 5 mg Tablet] 10 mg PO BID 7 Days tablet Home Medications: Fluticasone/Salmeterol [Advair 250-50 Diskus 14 Dose/Diskus] 1 inh IH Q12 Acyclovir [Acyclovir 400 mg Tablet] 400 mg PO Q12 10/03/18 Albuterol Sulfate [Proair HFA Inhalation Aerosol 8.5 gm MDI] 1 puff IH Q4HP PRN 10/03/18 Aspirin [Ecotrin 81 mg EC Tablet] 81 mg PO DAILY 10/03/18 Atorvastatin Calcium [Lipitor 80 mg Tablet] 80 mg PO QHS 10/03/18 Calcium Carbonate [Os-Duane 500 mg Tablet (Oyster-Shell)] 500 mg PO DAILY Cholecalciferol (Vitamin D3) [Vitamin D3 1000 Unit Tablet] 1,000 unit PO DAILY 10/03/18 Finasteride [Proscar 5 mg Tablet] 5 mg PO QHS 10/03/18 Gabapentin [Neurontin 300 mg Capsule] 300 mg PO HSP PRN 10/03/18 Loratadine [Claritin 10 mg Tablet] 10 mg PO DAILY 10/03/18 Multivitamin [Tab-A-Peggy (Multiple Vitamin) Tablet] 1 tab PO DAILY 10/03/18 Oxycodone HCl [Oxy-Ir 5 mg Tablet] 5 mg PO Q6HP PRN MDD filled 10/01 for 4 day supply 10/03/18 Pantoprazole Sodium [Protonix] 40 mg PO DAILY 10/03/18 Tadalafil [Cialis] 2.5 mg PO TUFR@1000 PRN 10/03/18 Tamsulosin HCl [Flomax 0.4 mg Cap.sr] 0.4 mg PO QHS 10/03/18 Apixaban [Eliquis 5 mg Tablet] 5 mg PO BID 30 Days tablet 10/04/18 Apixaban [Eliquis 5 mg Tablet] 10 mg PO BID 7 Days tablet 10/04/18 History of Present Illness History of Present Illness: PAULINE BROWN is a 68 year old male who comes to the emergency department with left foot pain and swelling. On September 26 patient had a left shoulder arthroscopic surgery and since then she has been laying on the couch, able to walk to the bathroom [id number] but for the last 2 days he is complaining of mild shortness of breath with a persistent dry cough for the last 3 days, phlegm, wheezing, pleuritic chest pain or chest pain, fever, chills, nausea, vomiting. [facility] to the emergency department as were concerns of DVT. Patient also went to [place] on September 17 by car and this is a [address] and came back on September 22 In the emergency department d-dimer noted to be elevated, left lower extremity ultrasound came back negative, CT a came back positive for intraluminal thrombi within branches of most of the right pulmonary arteries with no saddle emboli. Was a started on 1 mg/kg of Lovenox. Denies any history of blood clots. Hospital Course Hospital Course: Patient was initially started on subcu therapeutic dose Lovenox. His DVT study was negative. Echocardiogram was unremarkable except for mass in the right atrium. I discussed with Dr. 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 He just recommends observation and no further intervention. I discussed with the patient and his and recommended to follow-up with Dr. Peña outpatient. Patient was switched to Eliquis. He will take 10 mg twice daily for 7 days then 5 mg twice daily. Discussed with him and his in the in agreement of the plan. Recommend anticoagulation for 3-6 months. Patient is stable on room air and asymptomatic and wants to go home. Physical Exam Vital Signs: Temp Pulse Resp BP Pulse Ox 98.9 F 65 16 125/76 97 10/04/18 08:00 10/04/18 08:00 10/04/18 08:00 10/04/18 08:00 10/04/18 08:00 Intake & Output 10/03/18 10/04/18 10/05/18 06:59 06:59 06:59 Intake Total 600 Output Total 350 424 Balance -350 176 Weight 246 lb 0.574 oz 241 lb 2.971 oz General appearance: PRESENT: no acute distress, cooperative Head exam: PRESENT: atraumatic, normocephalic Eye exam: PRESENT: EOMI, PERRLA Mouth exam: PRESENT: neck supple, tongue midline Neck exam: ABSENT: meningismus, tenderness, tracheostomy Respiratory exam: PRESENT: clear to auscultation ezekiel. ABSENT: accessory muscle use Cardiovascular exam: PRESENT: RRR. ABSENT: diastolic murmur, systolic murmur Pulses: PRESENT: normal radial pulses GI/Abdominal exam: PRESENT: normal bowel sounds, soft. ABSENT: ascites, tenderness Rectal exam: PRESENT: deferred Neurological exam: PRESENT: alert, altered, awake, oriented to person, oriented to place, oriented to time, oriented to situation Results Laboratory Results: 10/03/18 05:30 10/03/18 05:30 10/03/18 10/04/18 18:30 05:15 Urine Color YELLOW Urine Appearance CLEAR Urine pH 5.0 Ur Specific [place] 1.023 Urine Protein NEGATIVE Urine Glucose (UA) NEGATIVE Urine Ketones NEGATIVE Urine Blood NEGATIVE Urine Nitrite NEGATIVE Ur Leukocyte Esterase NEGATIVE Urine WBC (Auto) 0 Urine RBC (Auto) 0 Stool Occult Blood NEGATIVE Impressions: Chest/Abdomen CTA 10/02/18 18:35 IMPRESSION: Extensive right pulmonary emboli. I am contacting the ordering clinician now. TECHNIQUE: Images stored on PACS. All CT scanners at this facility use dose modulation, iterative reconstruction, and/or weight based dosing when appropriate to reduce radiation dose to as low as reasonably achievable (ALARA). [facility]: Dose Right [facility]: CareDose [facility]: Dose Right [facility]: Teradose 4D [facility]: [employer] LIMITATIONS: None. FINDINGS: IMPRESSION: TECHNICAL DOCUMENTATION: Quality ID # [id number]: Final reports with documentation of one or more dose reduction techniques (e.g., Automated exposure control, adjustment of the mA and/or kV according to patient size, use of iterative reconstruction technique) 2010 [employer]- All Rights Reserved Venous Doppler Study 10/02/18 19:05 IMPRESSION: NO EVIDENCE OF DVT OR SVT IN THE LEFT LEG. Qualifiers - * PATIENT BEING DISCHARGED WITH ANY OF THE FOLLOWING DIAGNOSIS: VTE (PE or DVT)
[2018-10-04] MEDS: DOCUSATE SODIUM 100 MG CAPSULE PO SCH (10:12)
[2018-10-04] MEDS: APIXABAN 5 MG TABLET PO SCH (10:12)
[2018-10-04] MEDS: TAMSULOSIN HCL 0.4 MG CAP.SR.24H PO SCH (10:12)
[2018-10-04] MEDS: ASPIRIN 81 MG TABLET, CHEWABLE PO SCH (10:13)
[2018-10-04] MEDS: ACYCLOVIR 200 MG/5 ML SUSP 60 ML PO SCH (10:13)
[2018-10-04] MEDS: FLUTICASONE/SALMETEROL DISKUS 250-50 MCG/DOSE IH SCH (10:13)
[2018-10-04] MEDS: LORATADINE 10 MG TABLET PO SCH (10:13)
[2018-10-04] MEDS: MULTIVITAMIN TABLET PO SCH (10:13)
[2018-10-04] MEDS: FLUTICASONE NASAL SPRAY 50 MCG/SPRY 120 SPRAY/16 GM NASL SCH (10:13)
[2018-10-04 10:18] VITALS: BP 140/84
[2018-10-11] MEDS ORDERED: APIXABAN 5 MG TABLET PO SCH (10:00)
== END 2018-10-04 10:42 | disposition home or self-care (01) | DRG 176 ==
LOC: ER 18:09 → EH 22:19 → OBSVTOIN 23:22 → 3W 10-03 00:39
PROVIDERS: ADMIT Internal Medicine; ATTEND Internal Medicine
PROC: 5A09357 Assistance with Respiratory Ventilation, Less than 24 Consecutive Hours, Continuous Positive Airway Pressure (ICD-10-PCS; principal; 2018-10-03)
DX: I26.99 Other pulmonary embolism without acute cor pulmonale (principal); G47.33 Obstructive sleep apnea (adult) (pediatric); E78.00 Pure hypercholesterolemia, unspecified; G25.81 Restless legs syndrome; K21.9 Gastro-esophageal reflux disease without esophagitis; M19.90 Unspecified osteoarthritis, unspecified site; E89.0 Postprocedural hypothyroidism; M79.89 Other specified soft tissue disorders; G89.18 Other acute postprocedural pain; I10 Essential (primary) hypertension; N40.0 Benign prostatic hyperplasia without lower urinary tract symptoms; R79.1 Abnormal coagulation profile; Z96.612 Presence of left artificial shoulder joint; Z79.899 Other long term (current) drug therapy; Z79.82 Long term (current) use of aspirin; Z88.1 Allergy status to other antibiotic agents; Z88.2 Allergy status to sulfonamides; Z82.61 Family history of arthritis; Z82.49 Family history of ischemic heart disease and other diseases of the circulatory system; Z80.42 Family history of malignant neoplasm of prostate
CPT/HCPCS: 36415; 36600; 71275; 80048; 80053; 81001; 82272; 82803; 83735; 84100; 84484; 85025; 85027; 85379; 93005; 93010; 93306; 93971; 96372; 99285; J1650; J3490

== ENCOUNTER → 2018-12-18 | Outpatient (CLI) | payer MEDICARE, OTHER ==
--- NOTE | 2018-12-18 14:02 | RADIOLOGY REPORT (SQ) ---
EXAM DESCRIPTION: PELVIS AP COMPLETED DATE/TIME: 12/18/2018 1:37 pm REASON FOR STUDY: PAGET DISEASE OF BONE M88.9 OSTEITIS DEFORMANS OF UNSPECIFIED BONE COMPARISON: Three-way abdomen series 07/23/2012 NUMBER OF VIEWS: One view TECHNIQUE: AP Pelvis LIMITATIONS: None. FINDINGS: MINERALIZATION: Diffuse increased bone density throughout the right hemipelvis and left in nominate bone iliac crest region, with coarse trabecular pattern characteristic of Paget's disease. No pathologic fracture. No worrisome lytic lesion. HIPS: No acute fracture or dislocation. No worrisome bone lesions. PELVIS AND SACRUM: No acute fracture or dislocation. No worrisome bone lesions. PUBIS AND ISCHIUM: No acute fracture. LOWER LUMBAR SPINE: No significant findings as visualized. SOFT TISSUES: No findings. OTHER: No other significant finding. IMPRESSION: Paget's disease of the pelvis, similar radiographically compared to 2012. COMMENT: Pelvic fractures are often occult on plain radiographs. If strong clinical suspicion for f racture, recommend CT or MR. TECHNICAL DOCUMENTATION: JOB ID: [id number] [employer]- All Rights Reserved Reading location - IP/workstation name: [email or web address]
--- NOTE | 2018-12-18 14:02 | RADIOLOGY REPORT (SQ) ---
EXAM DESCRIPTION: LUMBAR SPINE 2 VIEWS COMPLETED DATE/TIME: 12/18/2018 1:37 pm REASON FOR STUDY: PAGET DISEASE OF BONE M88.9 OSTEITIS DEFORMANS OF UNSPECIFIED BONE COMPARISON: None. NUMBER OF VIEWS: Two views. TECHNIQUE: AP and lateral radiographic images acquired of the lumbar spine. LIMITATIONS: None. FINDINGS: MINERALIZATION: Normal. SEGMENTATION: Normal. No transitional anatomy. ALIGNMENT: Normal. VERTEBRAE: Maintained height. No fracture or worrisome bone lesion. DISCS: Mild disc narrowing throughout the lumbar spine. Marginal osteophytes are present. POSTERIOR ELEMENTS: Pedicles and facets are intact. No pars defect or posterior arch defects. HARDWARE: None in the spine. PARASPINAL SOFT TISSUES: Normal. PELVIS: There is some sclerosis in the obinna bilaterally. OTHER: No other significant finding. IMPRESSION: Degenerative disc disease and spondylosis. There are some sclerotic changes in the obinna bilaterally. There are no findings specific for Paget's disease. TECHNICAL DOCUMENTATION: JOB ID: [id number] [employer]- All Rights Reserved Reading location - IP/workstation name: [email or web address]
== END ==
LOC: OD 13:03
PROVIDERS: ATTEND Internal Medicine Medical Oncology
DX: M88.9 Osteitis deformans of unspecified bone (principal); M51.36 Other intervertebral disc degeneration, lumbar region; M47.896 Other spondylosis, lumbar region
CPT/HCPCS: 72100; 72170